=== PATIENT | male | born 1940 | race Caucasian/White ===

== ENCOUNTER 2017-09-24 08:00 | Inpatient (IN) | payer MEDICARE, BC ==
[2017-09-25] MEDS ORDERED: Vecuronium 10 MG VIAL ONE ×2 (05:58→15:46)
[2017-09-25] MEDS ORDERED: Midazolam HCl 5 mg/5 ml Vial ONE (05:58)
[2017-09-25] MEDS ORDERED: Fentanyl 100 MCG/2 ML VIAL ONE (05:58)
[2017-09-25] MEDS ORDERED: Dexmedetomidine 200 MCG/2 ML VIAL ONE (05:58)
[2017-09-25] MEDS ORDERED: Heparin 10,000 UNITS/1 ML VIAL 30,000 UNITS, Admixture Fee 1 EACH in Sodium Chloride 0.... IVPB SCH (06:30)
[2017-09-25] MEDS ORDERED: CEFAZOLIN/Water 2 GM/20 ML SYRINGE ONE (06:46)
[2017-09-25] MEDS ORDERED: Post-Op Insulin Drip Protocol IVPB ONE (10:53)
[2017-09-25] MEDS ORDERED: Bisacodyl 5 MG TAB PO PRN (10:53)
[2017-09-25] MEDS ORDERED: Bisacodyl 10 MG SUPP PR PRN (10:53)
[2017-09-25] MEDS ORDERED: Ondansetron HCl/PF 4 MG/2 ML Vial IVP PRN (10:53)
[2017-09-25] MEDS ORDERED: Magnesium 2 GM/NS 0.9% 100 ML 2 GM in Premix Bag 1 BAG IVPB SCH (10:53)
[2017-09-25] MEDS ORDERED: Guaifenesin DM 100-10/5 ML UDCUP PO PRN (10:53)
[2017-09-25] MEDS ORDERED: hydrALAZINE 20 MG/ML VIAL SLOW IVP PRN (10:53)
[2017-09-25] MEDS ORDERED: Norepinephrine 8 MG/0.9% NS 250 ML IVPB PRN (10:53)
[2017-09-25] MEDS ORDERED: HYDROcodone/Acetaminophen 5/325 mg Tablet PO PRN (10:53)
[2017-09-25] MEDS ORDERED: Promethazine HCl 25 MG/ML VIAL IM PRN (10:53)
[2017-09-25] MEDS ORDERED: Potassium Chloride 20 MEQ/100 ML PREMIX BAG IVPB PRN (10:53)
[2017-09-25] MEDS ORDERED: Hetastarch 6% 500 ML 500 ML IVPB PRN (10:53)
[2017-09-25] MEDS ORDERED: Acetaminophen 325 MG TAB PO PRN (10:53)
[2017-09-25] MEDS ORDERED: Mag-Al 1200 mg/1200 mg/30 ML UDCUP PO PRN (10:53)
[2017-09-25] MEDS ORDERED: Fentanyl 100 MCG/2 ML VIAL SLOW IVP PRN (10:53)
[2017-09-25] MEDS ORDERED: Insulin Regular 300 UNITS/3 ML VIAL SC PRN (11:05)
[2017-09-25] MEDS ORDERED: Dextrose 5% in Water 1,000 ML IV PRN (11:05)
[2017-09-25] MEDS ORDERED: Dextrose 50% Abboject 50 ML SYRINGE SLOW IVP PRN (11:05)
--- NOTE | 2017-09-25 11:05 | OP ---
DATE OF PROCEDURE: 09/25/2017 PREOPERATIVE DIAGNOSES: Coronary artery disease, left ventricular dysfunction. POSTOPERATIVE DIAGNOSIS: Coronary artery disease, left ventricular dysfunction. PROCEDURE: Coronary bypass graft x4, left internal mammary artery good quality to a 1.25 mm diseased LAD, saphenous vein good quality to a 1.25 diagonal I and 1.5 diagonal II and 1.25 OM2. SURGEON: Xu Vides M.D. GUEST ROOM INSPECTOR: Dr. Luis Salas TRANSFUSION: One platelet pack. FINDINGS: The patient had a sternum that had significant bleeding from the marrow. Otherwise, trans esophageal echo confirmed apical akinesis. PROCEDURE IN DETAIL: After adequate anesthesia had been obtained, Dr. Salas did an endovascular vein harvest of the left greater saphenous vein while I performed a median sternotomy. After opening the sternum, the left internal mammary artery was harvested entering the left pleura in one small area. The mammary was not passed posterior to the thymus gland because there was a little thymus gland to pass it underneath. Aorta and right atrium were cannulated and cardiopulmonary bypass was instituted . Vessels were inspected for grafting and were somewhat small as anticipated. After aortic crosscla mping and 10,000 mL of [place] cardioplegic solution were given the patient's distal anastomoses wer e performed. The crossclamp was then removed and a partial occluding clamp placed, and 2 proximal an astomoses were performed on the aortic root and the third vein graft was anastomosed to the site of o ne of the other vein grafts. Following completion of this, the patient was somewhat slow to begin to beat, but then resumed a sinus rhythm. He was weaned from cardiopulmonary bypass, cannulas were rem jeanette, protamine was given systemically and the patient was somewhat sensitive with his blood pressure of protamine. Two temporary ventricular wires were placed, but not utilized. Mediastinal and left pleural drain were placed and the sternum was then reapproximated with #7 interrupted wire using vanc omycin paste, platelet-enriched blood, and platelet-poor plasma on the bone and subcutaneous tissue. Subcutaneous tissue and skin were closed in layers and the patient is to be taken to the ICU in guar ded condition.
[2017-09-25] MEDS: Sodium Chloride 0.9% 1,000 ML IV SCH ×2 (11:27→23:08)
[2017-09-25] MEDS: Ketorolac Tromethamine 30 MG/ML VIAL IVP SCH ×3 (11:28→23:04)
[2017-09-25 11:40] LABS: #Eosinphils 0.1 thou/uL (0.0-0.7); #Lymphocytes 1.4 thou/uL (1.20-3.40); #Monocytes 0.4 thou/uL (0.11-0.59); #Neutrophils 11.1 thou/uL (1.40-6.50); %Basophils 0.2 % (0.0-1.0); %Lymphocytes 10.4 % (21.0-51.0); %Monocytes 2.9 % (0.0-10.0); Mean Platelet Volume 6.7 fL (7.4-10.4); Red Blood Cell (RBC) Count 3.98 mill/uL (4.70-6.10)
[2017-09-25 11:44] LABS: Prothrombin Time 18.5 SEC (12.0-14.7)
[2017-09-25 11:45] LABS: PTT 35.6 SEC (22.9-36.1)
[2017-09-25 11:46] LABS: Oxyhemoglobin 96.5 % (94.0-97.0); Sodium 137 mmol/L (135-148)
[2017-09-25 11:48] LABS: Mechanical Tidal Volume 500 ml; Modified Allen's Test NOT DONE; Vent YES
[2017-09-25 11:49] LABS: Mode SIMV/PSV; Pressure Support 10 cmH2O
[2017-09-25 12:06] LABS: Anion Gap 11 mmol/L (10-20); BUN (Urea Nitrogen) 9 mg/dL (8.4-25.7); Calc. Creatinine Clearance 105 mL/min (70-130); Calcium 7.1 mg/dL (7.8-10.44); Carbon Dioxide 24 mmol/L (23-31); Chloride 107 mmol/L (98-107); Estimated GFR-MDRD Greater than 90
--- NOTE | 2017-09-25 12:06 | RAD ---
CHEST ONE VIEW: History: Post open heart surgery. Comparison: None. FINDINGS: Patient is intubated with endotracheal tube tip above the fausto 4 cm. Central venous catheter tip is in the right atrium. Mediastinum and thoracostomy drains are present. No large pneumothorax. Suspect ed atelectasis. IMPRESSION: Expected post-operative changes without complication. POS: [facility]
[2017-09-25 12:09] VITALS: BMI 28.0
[2017-09-25 12:37] LABS: Oxyhemoglobin 97.7 % (94.0-97.0); Sodium 140 mmol/L (135-148)
[2017-09-25 12:37] LABS: Base Excess 2.9 mEq/L (0 (+/- 2.5)); O2 Content (venous) 12.3 VOL% (12.5-17.5); pH (venous) 7.46 (7.35-7.45)
[2017-09-25 12:37] LABS: Oxyhemoglobin 97.7 % (94.0-97.0); Sodium 136 mmol/L (135-148)
[2017-09-25 12:37] LABS: Oxyhemoglobin 97.5 % (94.0-97.0); Sodium 138 mmol/L (135-148)
[2017-09-25] MEDS: DOPamine 400 MG/D5W 250 ML 250 ML IVPB PRN (13:41)
[2017-09-25 15:24] LABS: Oxyhemoglobin 93.7 % (94.0-97.0); Sodium 140 mmol/L (135-148)
[2017-09-25 15:40] LABS: Mode PSV; Modified Allen's Test NOT DONE; Pressure Support 10 cmH2O; Vent YES
[2017-09-25] MEDS ORDERED: ePHEDrine/0.9% NaCl/PF SYRINGE 50 mg/10 ml ONE (15:46)
[2017-09-25] MEDS ORDERED: Lidocaine 1% PF 5 ML VIAL ONE (15:46)
[2017-09-25] MEDS ORDERED: Nitroglycerin 50 MG/250 ML BOT ONE (15:46)
[2017-09-25] MEDS ORDERED: PHENYLEPHRINE-NS 100 MCG/ML 10 ML SYRINGE ONE (15:46)
[2017-09-25] MEDS ORDERED: Heparin 30,000 units/30 ml VIAL ONE (15:46)
[2017-09-25] MEDS ORDERED: Aminocaproic Acid 5 GM/20 ML VIAL ONE (15:46)
[2017-09-25] MEDS ORDERED: Protamine Sulfate 250 MG/25 ML VIAL ONE (15:46)
[2017-09-25] MEDS: CEFAZOLIN/Water 2 GM/20 ML SYRINGE SLOW IVP SCH ×2 (15:47→22:26)
[2017-09-25 16:39] LABS: Mode OR ABG; Vent YES
[2017-09-25 16:40] LABS: Mode OR ABG; Vent YES
[2017-09-25 16:41] LABS: Mode OR ABG; Vent YES
[2017-09-25 17:03] LABS: Hematocrit 34.5 % (42.0-52.0)
[2017-09-25] MEDS: Fentanyl 100 MCG/2 ML VIAL SLOW IVP PRN (20:13)
[2017-09-25] MEDS ORDERED: Famotidine/PF 20 mg/2ml Vial SLOW IVP SCH (21:00)
[2017-09-25] MEDS ORDERED: Atorvastatin Calcium 20 MG TAB PO SCH (21:00)
[2017-09-26] MEDS: Fentanyl 100 MCG/2 ML VIAL SLOW IVP PRN (02:02)
[2017-09-26 04:24] LABS: #Lymphocytes 0.9 thou/uL (1.20-3.40); #Monocytes 1.8 thou/uL (0.11-0.59); #Neutrophils 10.7 thou/uL (1.40-6.50); %Basophils 0.3 % (0.0-1.0); %Eosinophils 0.2 % (0.0-10.0); %Lymphocytes 6.7 % (21.0-51.0); %Monocytes 13.1 % (0.0-10.0); Hematocrit 30.8 % (42.0-52.0); Mean Platelet Volume 7.1 fL (7.4-10.4); Red Blood Cell (RBC) Count 3.21 mill/uL (4.70-6.10); White Blood Cell (WBC) Count 13.5 thou/uL (4.8-10.8)
[2017-09-26 04:41] LABS: Anion Gap 7 mmol/L (10-20); BUN (Urea Nitrogen) 13 mg/dL (8.4-25.7); Calc. Creatinine Clearance 96 mL/min (70-130); Calcium 7.7 mg/dL (7.8-10.44); Carbon Dioxide 28 mmol/L (23-31); Chloride 110 mmol/L (98-107); Estimated GFR-MDRD Greater than 90
[2017-09-26] MEDS: Ketorolac Tromethamine 30 MG/ML VIAL IVP SCH ×4 (05:18→23:14)
[2017-09-26] MEDS: CEFAZOLIN/Water 2 GM/20 ML SYRINGE SLOW IVP SCH (06:09)
[2017-09-26] MEDS: DOPamine 400 MG/D5W 250 ML 250 ML IVPB PRN (06:56)
[2017-09-26] MEDS: HYDROcodone/Acetaminophen 5/325 mg Tablet PO PRN ×3 (08:06→23:10)
[2017-09-26] MEDS: Famotidine 20 MG TAB PO SCH ×2 (08:06→19:58)
--- NOTE | 2017-09-26 08:35 | RAD ---
PORTABLE CHEST: HISTORY: Postop sternotomy. COMPARISON: 09/25/17. FINDINGS: Cardiomegaly. Postop sternotomy change. Evidence of small bilateral effusions and bibasilar atelect asis. Upper lung dunn remain well aerated and clear. The central line is unchanged. ET tube has been removed. IMPRESSION: Evidence of bibasilar atelectasis and small effusions. POS: [facility]
[2017-09-26] MEDS: Sodium Chloride 0.9% 1,000 ML IV SCH (11:04)
--- NOTE | 2017-09-26 17:52 | CON ---
DATE OF CONSULTATION: 09/26/2017 HISTORY OF PRESENT ILLNESS: Mr. Wiggins is a pleasant 77-year-old gentleman, simon for most of his l pavan from [place]. He is now lives in [place] because of his who was admitted to the hospital following a cardiac catheterization and underwent coronary bypass graft surgery x4, last night he kruse d bradycardic. His x-ray shows cardiomegaly and bilateral pleural effusion. He has never smoked. D enies any prior history of TB, pneumonia or bronchial asthma. He is very active. PAST MEDICAL HISTORY: Pertinent for high cholesterol, hypertension, CHF. PAST SURGICAL HISTORY: He said he has had multiple somewhat related right hip prostheses. Additiona lly, he has had an echocardiogram, cardiac catheterization, foot surgery done, shoulder surgery. MEDICATIONS: From home includes Lasix 20, lisinopril 2.5, Coreg 3.125, Lipitor 40, aspirin. ALLERGIES: None. REVIEW OF SYSTEMS: Unremarkable. PHYSICAL EXAMINATION: VITAL SIGNS: Pulse 70, blood pressure is 118/80, respirations 18, sat 90%. CHEST: Decreased breath sounds, bilateral crackles. CARDIAC: Normal S1-S2. No gallops. LABORATORY: White count 13, hemoglobin and hematocrit 10 and 30 and platelet count normal. Renal fu nction normal. X-ray shows cardiomegaly, bilateral pleural effusion. IMPRESSION: 1. Status post coronary artery bypass graft. 2. Congestive heart failure. 3. Cardiomyopathy. PLAN: Agree with present treatment. The patient in no distress. Continue diuretics preload and aft erload reduction medication. We will follow while in the ICU.
[2017-09-26] MEDS: Atorvastatin Calcium 40 MG TAB PO SCH (19:58)
[2017-09-27 04:14] LABS: Anion Gap 8 mmol/L (10-20); BUN (Urea Nitrogen) 16 mg/dL (8.4-25.7); Calc. Creatinine Clearance 110 mL/min (70-130); Calcium 7.9 mg/dL (7.8-10.44); Carbon Dioxide 27 mmol/L (23-31); Chloride 109 mmol/L (98-107); Estimated GFR-MDRD Greater than 90
[2017-09-27] MEDS: Ketorolac Tromethamine 30 MG/ML VIAL IVP SCH ×3 (05:34→17:59)
[2017-09-27 06:05] LABS: Band 2 % (5-11); Macrocytosis SLIGHT = 6-15 cells (100X) (0-5/hpf); Mean Platelet Volume 7.6 fL (7.4-10.4); Neutrophil 69 % (42-75); Reactive Lymphocytes 1 % (0-10); White Blood Cell (WBC) Count 11.1 thou/uL (4.8-10.8)
--- NOTE | 2017-09-27 09:18 | RAD ---
PORTABLE CHEST: HISTORY: Postop sternotomy followup. COMPARISON: 09/26/17. FINDINGS: Cardiomegaly. Postop sternotomy change. Bibasilar atelectasis and evidence of small bilateral effus ions. Upper lung dunn remain clear. IMPRESSION: No significant change from yesterday. POS: [facility]
[2017-09-27] MEDS ORDERED: Ondansetron HCl/PF 4 MG/2 ML Vial IVP PRN (09:20)
[2017-09-27] MEDS ORDERED: Nitroglycerin 0.4 MG TAB 1 EACH SL PRN (09:20)
[2017-09-27] MEDS ORDERED: Mag-Al 1200 mg/1200 mg/30 ML UDCUP PO PRN (09:20)
[2017-09-27] MEDS ORDERED: Bisacodyl 10 MG SUPP PR PRN (09:20)
[2017-09-27] MEDS ORDERED: Artificial Tears 18 DROP/0.9 ML EA EYE PRN (09:20)
[2017-09-27] MEDS ORDERED: diphenhydrAMINE 25 MG CAP PO PRN (09:20)
[2017-09-27] MEDS ORDERED: Bisacodyl 5 MG TAB PO PRN (09:20)
[2017-09-27] MEDS ORDERED: Mineral Oil ENEMA PR PRN (09:20)
[2017-09-27] MEDS ORDERED: Guaifenesin DM 100-10/5 ML UDCUP PO PRN (09:20)
[2017-09-27] MEDS ORDERED: Zolpidem Tartrate 5 MG TAB PO PRN (09:20)
[2017-09-27] MEDS ORDERED: Furosemide 40 MG TAB PO SCH ×2 (09:20→10:00)
[2017-09-27] MEDS ORDERED: Milk Of Magnesia 30 ML UDCUP PO PRN (09:20)
[2017-09-27] MEDS: Famotidine 20 MG TAB PO SCH ×2 (09:52→21:35)
--- NOTE | 2017-09-27 16:34 | PRG ---
DATE OF SERVICE: 09/27/2017 SUBJECTIVE: This morning, awake, alert, responsive, in no distress. OBJECTIVE: VITAL SIGNS: Blood pressure 112/57, pulse 70, O2 sat 100%, respirations 18. His I's and O's have be en good, 1971 in and 875 out. CHEST: Chest reveals decreased breath sounds, no wheezing. CARDIAC: Normal S1, S2. No gallops. ABDOMEN: Soft, no masses. LABORATORY DATA: White count 11,000, H&H is 9 and 28, platelet count 166 . Electrolytes are normal. X-RAY FINDINGS: X-ray shows cardiomegaly, left pleural effusion. IMPRESSION: 1. Status post coronary artery bypass graft. 2. Marked weakness. PLAN: Continue PT and supportive care. We will follow while in [facility].
[2017-09-27] MEDS: Atorvastatin Calcium 40 MG TAB PO SCH (21:35)
[2017-09-27] MEDS: HYDROcodone/Acetaminophen 5/325 mg Tablet PO PRN (21:46)
[2017-09-27] MEDS ORDERED: Sodium Chloride 0.9% 10 ML ONE (23:58)
[2017-09-28] MEDS: Ketorolac Tromethamine 30 MG/ML VIAL IVP SCH (00:01)
[2017-09-28] MEDS: Famotidine 20 MG TAB PO SCH ×2 (08:22→21:11)
[2017-09-28] MEDS: Furosemide 40 MG TAB PO SCH (08:22)
[2017-09-28] MEDS ORDERED: Lisinopril 2.5 MG TAB PO SCH (09:00)
--- NOTE | 2017-09-28 09:12 | PRG ---
DATE OF SERVICE: 09/28/2017 He is doing well post coronary artery bypass graft. No longer hypertensive. PHYSICAL EXAMINATION: VITAL SIGNS: Blood pressure 141/60, sats 95%, temperature 98, pulse 70, respirations 20. CHEST: No wheezing. CARDIAC: Normal S1, S2. ABDOMEN: Soft, no masses. IMPRESSION: 1. Status post coronary artery bypass graft. 2. Congestive heart failure. 3. Hypertension, resolved. Continue care as per Surgery. I will follow at a distance. Please call if needed.
[2017-09-28] MEDS: Enoxaparin Sodium 40 MG/0.4 ML SYRINGE SC SCH (09:14)
[2017-09-28] MEDS: Acetaminophen 325 MG TAB PO PRN ×2 (15:29→21:11)
[2017-09-28] MEDS: Atorvastatin Calcium 40 MG TAB PO SCH (21:11)
[2017-09-29] MEDS: Acetaminophen 325 MG TAB PO PRN ×2 (06:01→21:30)
[2017-09-29] MEDS: Enoxaparin Sodium 40 MG/0.4 ML SYRINGE SC SCH (09:11)
[2017-09-29] MEDS: Lisinopril 5 MG TAB PO SCH (09:11)
[2017-09-29] MEDS: Furosemide 40 MG TAB PO SCH (09:12)
[2017-09-29] MEDS: Famotidine 20 MG TAB PO SCH ×2 (09:12→21:30)
[2017-09-29] MEDS: Atorvastatin Calcium 40 MG TAB PO SCH (21:30)
[2017-09-30] MEDS: Furosemide 40 MG TAB PO SCH (11:21)
[2017-09-30] MEDS: Lisinopril 5 MG TAB PO SCH (11:21)
[2017-09-30] MEDS: Famotidine 20 MG TAB PO SCH (11:21)
[2017-09-30] MEDS: Enoxaparin Sodium 40 MG/0.4 ML SYRINGE SC SCH (11:21)
[2017-09-30 11:57] VITALS: TEMP 98.4
[2017-09-30 14:17] VITALS: BP 124/66
[2017-09-30] MEDS ORDERED: Carvedilol 3.125 MG TAB PO SCH (17:00)
--- NOTE | 2017-09-30 20:57 | DIS ---
HOSPITAL COURSE: This is a pleasant gentleman who was evaluated by Dr. Kinney as an outpatient wit h mildly depressed left ventricular systolic function with an ejection fraction of 40% to 45% and sev ere disease in his LAD, diagonal, and circumflex system, although all of these vessels were small on his cardiac catheterization. He had some symptoms of congestive heart failure prompting the evaluati on. He was taken to the operating room on the day of admission where he underwent a coronary bypass grafting with saphenous vein good quality to a small diagonal 1, more usable diagonal 2 and a small O M2 as well as a good GREGORY to a small LAD. He received 1 platelet pack intraoperatively. His postope rative course was unremarkable. He made good progress and will be discharged home on his admitting edicines with no prescriptions. Discharge and follow up instructions were given.
--- NOTE | 2017-10-10 13:30 | EKG ---
Test Reason : POST CABG Blood Pressure : / mmHG Vent. Rate : 077 BPM Atrial Rate : 077 BPM P-R Int : 236 ms QRS Dur : 122 ms QT Int : 468 ms P-R-T Axes : 043 -33 106 degrees QTc Int : 529 ms Sinus rhythm with 1st degree A-V block Left axis deviation Cannot rule out Anterior infarct (cited on or before 24-SEP-2017) T wave abnormality, consider lateral ischemia Abnormal ECG Confirmed by RENE ANTOINE MD ([id number]) on 10/10/2017 1:29:59 PM Referred By: ASTRID Confirmed By:RENE ANTOINE MD
== END 2017-09-30 12:40 | disposition home or self-care (01) | DRG 236 ==
LOC: SURG A 09-25 05:38 → CCU 09-25 10:54 → 2NO 09-27 15:23
PROVIDERS: ADMIT Thoracic Surgery (Cardiothoracic Vascular Surgery); ATTEND Thoracic Surgery (Cardiothoracic Vascular Surgery)
PROC: 02100Z9 Bypass Coronary Artery, One Artery from Left Internal Mammary, Open Approach (ICD-10-PCS; principal; 2017-09-25)
PROC: 021209W Bypass Coronary Artery, Three Arteries from Aorta with Autologous Venous Tissue, Open Approach (ICD-10-PCS; 2017-09-25)
PROC: 06BQ4ZZ Excision of Left Saphenous Vein, Percutaneous Endoscopic Approach (ICD-10-PCS; 2017-09-25)
PROC: 5A1221Z Performance of Cardiac Output, Continuous (ICD-10-PCS; 2017-09-25)
PROC: B24BZZ4 Ultrasonography of Heart with Aorta, Transesophageal (ICD-10-PCS; 2017-09-25)
DX: I25.10 Atherosclerotic heart disease of native coronary artery without angina pectoris (principal); I42.9 Cardiomyopathy, unspecified; I11.0 Hypertensive heart disease with heart failure; I50.9 Heart failure, unspecified; E78.5 Hyperlipidemia, unspecified; M19.90 Unspecified osteoarthritis, unspecified site
CPT/HCPCS: 36415; 36416; 36430; 71010; 80048; 82805; 85025; 85610; 85730; 86850; 86900; 86901; 93005; 93010; 93798; 94002; 94150; 94640; 94799; A4216; J1265; J1642; J1644; J1650; J1815; J1885; J2001; J2250; J2405; J2597; J2720; J3010; J3475; J3480; J7050; P9035; P9045; S0017; S0028

== ENCOUNTER 2017-09-24 08:01 | Outpatient (CLI) | payer MEDICARE, BC ==
--- NOTE | 2017-10-10 13:25 | EKG ---
Test Reason : Blood Pressure : / mmHG Vent. Rate : 050 BPM Atrial Rate : 050 BPM P-R Int : 244 ms QRS Dur : 090 ms QT Int : 458 ms P-R-T Axes : 000 014 099 degrees QTc Int : 417 ms Poor data quality, interpretation may be adversely affected Sinus bradycardia with 1st degree A-V block Anterolateral infarct , age undetermined Abnormal ECG No previous ECGs available Confirmed by ELINA MART, RENE ([id number]) on 10/10/2017 1:25:44 PM Referred By: KAITLYNN Confirmed By:RENE ANTOINE MD
== END 2017-09-24 08:02 | disposition home or self-care (01) ==
LOC: LABBT 08:01
PROVIDERS: ATTEND Thoracic Surgery (Cardiothoracic Vascular Surgery)
DX: Z01.812 Encounter for preprocedural laboratory examination (principal); I25.10 Atherosclerotic heart disease of native coronary artery without angina pectoris
CPT/HCPCS: 36415; 36430; 86850; 86900; 86901; 93005; 93010

== ENCOUNTER 2023-02-09 13:12 | Outpatient (CLI) | payer MEDICARE, BC | END 2023-02-09 13:13 | disposition home or self-care (01) | LOC: TBSIIMAG 13:12 | PROVIDERS: ATTEND Internal Medicine | DX: C20 Malignant neoplasm of rectum (principal) | CPT/HCPCS: 72197; 80053; 85025 ==

== ENCOUNTER 2023-02-10 13:57 | Outpatient (CLI) | payer MEDICARE, BC ==
[~2023-02-10 13:57] MED LIST: Iopamidol 370 76% 100 ML VIAL ONE
== END 2023-02-10 13:58 | disposition home or self-care (01) ==
LOC: CT 13:57
PROVIDERS: ATTEND Radiology Radiation Oncology
DX: C20 Malignant neoplasm of rectum (principal); D37.5 Neoplasm of uncertain behavior of rectum
CPT/HCPCS: 71260; 74177; Q9967

== ENCOUNTER 2023-02-13 10:15 | Day surgery (SDC) | payer MEDICARE, BC ==
[2023-02-09 17:05] VITALS: BMI 25.2
[2023-02-13] MEDS ORDERED: Bupivacaine/Epinephrine 0.25% 30 ML VIAL ONE (13:48)
[2023-02-13] MEDS ORDERED: Lidocaine 2% PF 5 ML VIAL ONE (13:48)
[2023-02-13] MEDS ORDERED: fentaNYL PF 100 MCG/2 ML SYRINGE ONE (13:57)
[2023-02-13] MEDS ORDERED: Sodium Chloride 0.9% 100 ML ONE (14:01)
[2023-02-13] MEDS ORDERED: CEFAZOLIN 2 GM VIAL ONE (14:01)
[2023-02-13] MEDS ORDERED: Lidocaine 1% PF 5 ML VIAL ONE (14:15)
[2023-02-13] MEDS ORDERED: ePHEDrine Sulfate 50 MG/10 ML VIAL ONE (14:15)
[2023-02-13] MEDS ORDERED: Ondansetron PF 4 MG/2 ML Vial ONE (14:15)
[2023-02-13] MEDS ORDERED: PROPOFOL 200 MG/20 ML VIAL ONE (14:15)
== END 2023-02-13 16:17 | disposition home or self-care (01) ==
LOC: SDC 10:15
PROVIDERS: ATTEND Surgery
PROC: 0JH60WZ Insertion of Totally Implantable Vascular Access Device into Chest Subcutaneous Tissue and Fascia, Open Approach (ICD-10-PCS; principal; 2023-02-13)
PROC: 02HV33Z Insertion of Infusion Device into Superior Vena Cava, Percutaneous Approach (ICD-10-PCS; 2023-02-13)
PROC: B518ZZA Fluoroscopy of Superior Vena Cava, Guidance (ICD-10-PCS; 2023-02-13)
DX: C20 Malignant neoplasm of rectum (principal); I51.9 Heart disease, unspecified; E78.00 Pure hypercholesterolemia, unspecified; Z79.82 Long term (current) use of aspirin; Z79.899 Other long term (current) drug therapy; Z95.1 Presence of aortocoronary bypass graft
CPT/HCPCS: 36561; 71045; C1788; J1642; J2001; J2405; J2704; J3490

== ENCOUNTER 2023-05-27 16:39 | Inpatient (IN) | payer MEDICARE, BC ==
[~2023-05-27 16:39] MED LIST changes: -Iopamidol 370 76% 100 ML VIAL ONE; +Iopamidol-370 76% 500 ML MDV (1 ML CHARGE) ONE
[2023-05-27 17:28] LABS: #Basophils 0.1 thou/uL (0.0-0.2); #Eosinphils 0.1 thou/uL (0.0-0.7); #Neutrophils 11.4 thou/uL (1.40-6.50); %Basophils 0.5 % (0.0-1.0); %Eosinophils 0.8 % (0.0-10.0); %Lymphocytes 12.1 % (21.0-51.0); %Monocytes 17.9 % (0.0-10.0); %Neutrophils 67.9 % (42.0-75.0); Hematocrit 25.8 % (42.0-52.0); Hemoglobin 8.1 g/dL (14.0-18.0); Mean Corpuscular HGB CONC 31.4 g/dL (32.0-36.0); Mean Corpuscular Hemoglobin 33.3 pg (27.0-31.0); Mean Corpuscular Volume 106.2 fl (78.0-98.0); Mean Platelet Volume 10.1 fL (7.4-10.4); Platelet Count 285 10x3/uL (130-400); RBC Distribution Width 24.6 % (11.5-14.5); Red Blood Cell (RBC) Count 2.43 mill/uL (4.70-6.10); White Blood Cell (WBC) Count 16.8 10x3/uL (4.8-10.8)
[2023-05-27 17:50] LABS: ALT (SGPT) 11 U/L (8-55); AST (SGOT) 20 U/L (5-34); Albumin 2.3 g/dL (3.4-4.8); Alkaline Phosphatase 94 U/L (40-110); Anion Gap 9 mmol/L (10-20); BUN (Urea Nitrogen) 14 mg/dL (8.4-25.7); Bilirubin, Total 0.7 mg/dL (0.2-1.2); Calc. Creatinine Clearance 0 mL/min (70-130); Calcium 7.2 mg/dL (7.8-10.44); Carbon Dioxide 25 mmol/L (23-31); Chloride 111 mmol/L (98-107); Estimated GFR 89; Globulin 2.1 g/dL (2.4-3.5); Glucose 100 mg/dL (83-110); Potassium 3.7 mmol/L (3.5-5.1); Protein, Total 4.4 g/dL (5.8-8.1); Sodium 141 mmol/L (136-145)
[2023-05-27 17:51] LABS: Anisocytosis SLIGHT = 6-15 cells HPF (0-5); Burr Cells SLIGHT = 2-5 cells HPF (0-1); CellaVision Operator ID lab.dlt; Macrocytosis SLIGHT = 6-15 cells HPF (0-5); Ovalocytes SLIGHT = 2-5 cells HPF (0-1); Platelet Adequacy Comment Platelets Normal; Poikilocytosis MODERATE=16-30 cells HPF (0-5); Polychromasia SLIGHT = 2-3 cells HPF (0-2)
[2023-05-27 20:31] LABS: Bacteria/HPF None Seen HPF (None Seen); Bilirubin Negative (Negative); Blood, Urine Negative (Negative); CAUTI Indications for Culture Pelvic or flank pain; Clarity Clear (Clear); Glucose, Urine (Dipstick) Normal (Negative); Ketone, Urine Negative (Negative); Leukocyte Negative Leu/uL (Negative); Nitrite Negative (Negative); Protein, Urine (Dipstick) 20 mg/dL (Neg-Trace); RBC/HPF 0-3 HPF (0-3); Specific Gravity, Urine 1.023 (1.002-1.036); Squamous Epithelial None Seen HPF (0-3); Urobilinogen 3 mg/dL (Less than 2); WBC/HPF 0-3 HPF (0-3)
[2023-05-27 20:38] LABS: Urine Culture Reflex No No
[2023-05-27 21:06] LABS: Lactic Acid 2.8 mmol/L (0.5-2.2)
[2023-05-27 21:59] LABS: Troponin I 0.014 ng/mL (< 0.028)
[2023-05-27] MEDS ORDERED: Acetaminophen 325 MG TAB PO PRN (23:21)
[2023-05-27] MEDS ORDERED: Ondansetron PF 4 MG/2 ML Vial IVP PRN (23:21)
[2023-05-27] MEDS ORDERED: Ondansetron ODT 4 MG TAB PO PRN (23:21)
[2023-05-27] MEDS ORDERED: Furosemide 20 MG/2 ML VIAL SLOW IVP SCH (23:30)
[2023-05-28 00:21] VITALS: BMI 24.8
[2023-05-28 02:07] LABS: #Basophils 0.1 thou/uL (0.0-0.2); #Eosinphils 0.1 thou/uL (0.0-0.7); #Monocytes 2.5 thou/uL (0.11-0.59); #Neutrophils 8.2 thou/uL (1.40-6.50); %Basophils 0.4 % (0.0-1.0); %Eosinophils 0.9 % (0.0-10.0); %Lymphocytes 13.5 % (21.0-51.0); %Monocytes 19.6 % (0.0-10.0); Hematocrit 26.6 % (42.0-52.0); Hemoglobin 8.4 g/dL (14.0-18.0); Mean Corpuscular HGB CONC 31.6 g/dL (32.0-36.0); Mean Corpuscular Hemoglobin 33.2 pg (27.0-31.0); Mean Corpuscular Volume 105.1 fl (78.0-98.0); Mean Platelet Volume 10.2 fL (7.4-10.4); Platelet Count 291 10x3/uL (130-400); RBC Distribution Width 24.2 % (11.5-14.5); Red Blood Cell (RBC) Count 2.53 mill/uL (4.70-6.10); White Blood Cell (WBC) Count 12.7 10x3/uL (4.8-10.8)
[2023-05-28 02:19] LABS: INR-International Normal Ratio 1.3; Prothrombin Time 16.7 sec (12.0-14.7)
[2023-05-28 02:20] LABS: PTT 31.1 sec (22.9-36.1)
[2023-05-28 03:19] LABS: Anion Gap 10 mmol/L (10-20); BUN (Urea Nitrogen) 14 mg/dL (8.4-25.7); Calc. Creatinine Clearance 82 mL/min (70-130); Carbon Dioxide 22 mmol/L (23-31); Chloride 109 mmol/L (98-107); Estimated GFR 90; Glucose 107 mg/dL (83-110); Potassium 3.4 mmol/L (3.5-5.1); Sodium 138 mmol/L (136-145)
[2023-05-28] MEDS ORDERED: Electrolyte Replacement Protocol 1 EACH FS SCH (03:30)
[2023-05-28] MEDS ORDERED: Potassium Chloride 20 MEQ TAB PO SCH (03:30)
[2023-05-28 04:26] LABS: Magnesium 0.9 mg/dL (1.6-2.6)
[2023-05-28] MEDS ORDERED: Magnesium Sulfate In Water 4 GM in Premix Bag 1 BAG IVPB SCH (08:00)
[2023-05-28] MEDS: Aspirin 81 mg Enteric Coated Tablet PO SCH (08:44)
[2023-05-28] MEDS: Atorvastatin Calcium 40 MG TAB PO SCH (08:44)
[2023-05-28] MEDS: Sodium Chloride 0.9% 1,000 ML IV SCH (13:29)
[2023-05-28] MEDS: Furosemide 20 MG/2 ML VIAL SLOW IVP SCH (13:33)
[2023-05-28] MEDS: Albumin 25% 25 GM/100 ML BOT IVPB SCH (17:04)
[2023-05-28] MEDS: Heparin 5,000 UNITS/ML VIAL SC SCH (22:00)
[2023-05-29] MEDS: Albumin 25% 25 GM/100 ML BOT IVPB SCH ×3 (00:25→13:23)
[2023-05-29] MEDS: Sodium Chloride 0.9% 1,000 ML IV SCH ×2 (01:39→15:46)
[2023-05-29] MEDS: Furosemide 20 MG/2 ML VIAL SLOW IVP SCH ×2 (05:08→15:46)
[2023-05-29 05:28] LABS: #Basophils 0.1 thou/uL (0.0-0.2); #Eosinphils 0.1 thou/uL (0.0-0.7); #Monocytes 2.2 thou/uL (0.11-0.59); #Neutrophils 7.2 thou/uL (1.40-6.50); %Basophils 0.6 % (0.0-1.0); %Eosinophils 1.1 % (0.0-10.0); %Neutrophils 63.7 % (42.0-75.0); Hematocrit 25.3 % (42.0-52.0); Mean Corpuscular HGB CONC 31.6 g/dL (32.0-36.0); Mean Corpuscular Hemoglobin 32.9 pg (27.0-31.0); Mean Corpuscular Volume 104.1 fl (78.0-98.0); Mean Platelet Volume 10.1 fL (7.4-10.4); Platelet Count 241 10x3/uL (130-400); RBC Distribution Width 23.7 % (11.5-14.5); Red Blood Cell (RBC) Count 2.43 mill/uL (4.70-6.10); White Blood Cell (WBC) Count 11.3 10x3/uL (4.8-10.8)
[2023-05-29 05:50] LABS: Anion Gap 10 mmol/L (10-20); BUN (Urea Nitrogen) 12 mg/dL (8.4-25.7); Calc. Creatinine Clearance 90 mL/min (70-130); Calcium 7.2 mg/dL (7.8-10.44); Carbon Dioxide 25 mmol/L (23-31); Chloride 109 mmol/L (98-107); Estimated GFR 92; Glucose 84 mg/dL (83-110); Magnesium 1.6 mg/dL (1.6-2.6); Potassium 3.6 mmol/L (3.5-5.1); Sodium 140 mmol/L (136-145)
[2023-05-29] MEDS ORDERED: Magnesium 2 GM/50 ML(in water) 2 GM in Premix Bag 1 BAG IVPB SCH (08:00)
[2023-05-29] MEDS: Heparin 5,000 UNITS/ML VIAL SC SCH ×2 (08:56→21:14)
[2023-05-29] MEDS: Atorvastatin Calcium 40 MG TAB PO SCH (08:56)
[2023-05-29] MEDS: Aspirin 81 mg Enteric Coated Tablet PO SCH (08:56)
[2023-05-29] MEDS: Magnesium Oxide 400 MG TAB PO SCH (08:56)
[2023-05-30 04:02] LABS: #Basophils 0.1 thou/uL (0.0-0.2); #Eosinphils 0.3 thou/uL (0.0-0.7); #Monocytes 2.2 thou/uL (0.11-0.59); %Basophils 0.5 % (0.0-1.0); %Eosinophils 2.2 % (0.0-10.0); %Lymphocytes 15.6 % (21.0-51.0); %Monocytes 19.5 % (0.0-10.0); %Neutrophils 61.6 % (42.0-75.0); Hematocrit 25.7 % (42.0-52.0); Hemoglobin 8.3 g/dL (14.0-18.0); Mean Corpuscular HGB CONC 32.3 g/dL (32.0-36.0); Mean Corpuscular Hemoglobin 33.6 pg (27.0-31.0); Mean Platelet Volume 9.8 fL (7.4-10.4); Platelet Count 239 10x3/uL (130-400); RBC Distribution Width 23.1 % (11.5-14.5); Red Blood Cell (RBC) Count 2.47 mill/uL (4.70-6.10); White Blood Cell (WBC) Count 11.4 10x3/uL (4.8-10.8)
[2023-05-30 04:25] LABS: Phosphorus 2.1 mg/dL (2.3-4.7)
[2023-05-30 04:28] LABS: Anion Gap 11 mmol/L (10-20); BUN (Urea Nitrogen) 11 mg/dL (8.4-25.7); Calc. Creatinine Clearance 84 mL/min (70-130); Carbon Dioxide 24 mmol/L (23-31); Chloride 109 mmol/L (98-107); Estimated GFR 90; Glucose 112 mg/dL (83-110); Magnesium 1.7 mg/dL (1.6-2.6); Potassium 3.8 mmol/L (3.5-5.1); Sodium 140 mmol/L (136-145)
[2023-05-30] MEDS ORDERED: Magnesium 2 GM/50 ML(in water) 2 GM in Premix Bag 1 BAG IVPB SCH (08:00)
[2023-05-30] MEDS: Aspirin 81 mg Enteric Coated Tablet PO SCH (10:51)
[2023-05-30] MEDS: Magnesium Oxide 400 MG TAB PO SCH (10:51)
[2023-05-30] MEDS: Atorvastatin Calcium 40 MG TAB PO SCH (10:51)
[2023-05-30] MEDS: Heparin 5,000 UNITS/ML VIAL SC SCH (10:52)
[2023-05-30 11:42] VITALS: BP 129/60; TEMP 97.8
== END 2023-05-30 13:30 | disposition home or self-care (01) | DRG 844 ==
LOC: ERS 16:39 → 2NO 22:18
PROVIDERS: ADMIT Student in an Organized Health Care Education/Training Program; ATTEND Internal Medicine
PROC: 30233J1 Transfusion of Nonautologous Serum Albumin into Peripheral Vein, Percutaneous Approach (ICD-10-PCS; principal; 2023-05-28)
DX: E88.09 Other disorders of plasma-protein metabolism, not elsewhere classified (principal); C18.9 Malignant neoplasm of colon, unspecified; C20 Malignant neoplasm of rectum; J90 Pleural effusion, not elsewhere classified; J98.11 Atelectasis; R60.1 Generalized edema; I95.9 Hypotension, unspecified; I25.10 Atherosclerotic heart disease of native coronary artery without angina pectoris; I10 Essential (primary) hypertension; E78.5 Hyperlipidemia, unspecified; R63.5 Abnormal weight gain; D72.829 Elevated white blood cell count, unspecified; D64.9 Anemia, unspecified; E83.42 Hypomagnesemia; R54 Age-related physical debility; G47.33 Obstructive sleep apnea (adult) (pediatric); Z79.82 Long term (current) use of aspirin; Z92.21 Personal history of antineoplastic chemotherapy; Z95.5 Presence of coronary angioplasty implant and graft; Z89.431 Acquired absence of right foot; Z89.021 Acquired absence of right finger(s)
CPT/HCPCS: 36415; 71045; 71275; 80048; 80053; 81001; 82550; 82607; 83605; 83735; 83880; 84100; 84443; 84484; 85025; 85379; 85610; 85730; 86850; 86900; 86901; 87040; 93306; 97139; J1644; J1940; J3475; J7050; P9047; Q9967

== ENCOUNTER 2023-06-11 11:22 | Inpatient (IN) | payer MEDICARE, BC ==
[2023-06-11 14:07] LABS: Hemoglobin 9.4 g/dL (14.0-18.0); Mean Corpuscular HGB CONC 32.4 g/dL (32.0-36.0); Mean Corpuscular Hemoglobin 34.8 pg (27.0-31.0); Mean Corpuscular Volume 107.4 fl (78.0-98.0); Mean Platelet Volume 10.3 fL (7.4-10.4); Platelet Count 150 10x3/uL (130-400); RBC Distribution Width 16.9 % (11.5-14.5); White Blood Cell (WBC) Count 8.9 10x3/uL (4.8-10.8)
[2023-06-11 14:29] LABS: Anion Gap 11 mmol/L (10-20); BUN (Urea Nitrogen) 22 mg/dL (8.4-25.7); Calc. Creatinine Clearance 0 mL/min (70-130); Carbon Dioxide 18 mmol/L (23-31); Chloride 113 mmol/L (98-107); Estimated GFR 92; Glucose 83 mg/dL (83-110); Potassium 3.4 mmol/L (3.5-5.1); Sodium 139 mmol/L (136-145)
[2023-06-11] MEDS ORDERED: fentaNYL PF 100 MCG/2 ML SYRINGE ONE (14:46)
[2023-06-11] MEDS ORDERED: Vasopressin 20 UNITS/ML VIAL ONE (14:57)
[2023-06-11] MEDS ORDERED: Dexamethasone 20 MG/5 ML VIAL ONE (15:04)
[2023-06-11] MEDS ORDERED: ePHEDrine Sulfate 50 MG/10 ML VIAL ONE (15:04)
[2023-06-11] MEDS ORDERED: Succinylcholine 200 MG/10 ml SYRINGE FS ONE (15:04)
[2023-06-11] MEDS ORDERED: Ondansetron PF 4 MG/2 ML Vial ONE (15:04)
[2023-06-11] MEDS ORDERED: Rocuronium Bromide 10 MG/ML (10ML VIAL) ONE (15:04)
[2023-06-11] MEDS ORDERED: PROPOFOL 200 MG/20 ML VIAL ONE (15:04)
[2023-06-11] MEDS ORDERED: cefOXitin 2 GM VIAL ONE (15:09)
[2023-06-11] MEDS ORDERED: Sodium Chloride 0.9% 100 ML ONE (15:09)
[2023-06-11] MEDS ORDERED: Bupivacaine 0.25% HCL 30 ML VIAL ONE (15:39)
[2023-06-11] MEDS ORDERED: EPINEPHrine 1 MG/ML AMP ONE (15:39)
[2023-06-11] MEDS ORDERED: Morphine 10 MG/ML VIAL SLOW IVP PRN (16:36)
[2023-06-11] MEDS ORDERED: Morphine 4 MG/ML VIAL SLOW IVP PRN (16:36)
[2023-06-11] MEDS ORDERED: Ondansetron PF 4 MG/2 ML Vial IVP PRN (16:36)
[2023-06-11] MEDS ORDERED: hydrALAZINE 20 MG/ML VIAL SLOW IVP PRN (16:36)
[2023-06-11] MEDS ORDERED: Promethazine HCl 25 MG/ML VIAL IM PRN ×2 (16:36→16:39)
[2023-06-11] MEDS ORDERED: Ipratropium/Albuterol 3 ML NEB NEB PRN (16:36)
[2023-06-11] MEDS ORDERED: Morphine 2 MG/ML VIAL SLOW IVP PRN (16:36)
[2023-06-11] MEDS ORDERED: Ondansetron HCl/PF 4 MG/2 ML Vial IVP PRN (16:39)
[2023-06-11] MEDS ORDERED: HYDROmorphone 2 MG/ML VIAL SLOW IVP PRN (16:39)
[2023-06-11] MEDS: Ketorolac Tromethamine 30 MG/ML VIAL IVP SCH ×2 (19:37→23:14)
[2023-06-11] MEDS: Sodium Chloride 0.9% 1,000 ML IV SCH (20:45)
[2023-06-11] MEDS: Famotidine/PF 20 mg/2ml Vial SLOW IVP SCH (20:45)
[2023-06-11] MEDS: Famotidine 20 MG TAB PO SCH (20:45)
[2023-06-11 20:57] VITALS: BMI 25.2
[2023-06-11] MEDS: Gentamicin Ophth Soln 0.3% 5 ml Bottle EA EYE SCH (21:13)
[2023-06-11] MEDS: cefOXitin 2 GM in Sodium Chloride 0.9% 100 ML IVPB SCH (23:14)
[2023-06-12] MEDS: Ketorolac Tromethamine 30 MG/ML VIAL IVP SCH ×2 (05:21→12:14)
[2023-06-12] MEDS: Sodium Chloride 0.9% 1,000 ML IV SCH ×2 (05:22→08:26)
[2023-06-12 05:46] LABS: #Monocytes 0.2 thou/uL (0.11-0.59); #Neutrophils 9.4 thou/uL (1.40-6.50); %Basophils 0.1 % (0.0-1.0); %Lymphocytes 4.7 % (21.0-51.0); %Neutrophils 92.8 % (42.0-75.0); Hematocrit 28.8 % (42.0-52.0); Hemoglobin 9.5 g/dL (14.0-18.0); Mean Corpuscular Hemoglobin 34.8 pg (27.0-31.0); Mean Corpuscular Volume 105.5 fl (78.0-98.0); Mean Platelet Volume 10.5 fL (7.4-10.4); Platelet Count 147 10x3/uL (130-400); RBC Distribution Width 16.2 % (11.5-14.5); Red Blood Cell (RBC) Count 2.73 mill/uL (4.70-6.10); White Blood Cell (WBC) Count 10.1 10x3/uL (4.8-10.8)
[2023-06-12 06:18] LABS: Anion Gap 17 mmol/L (10-20); BUN (Urea Nitrogen) 24 mg/dL (8.4-25.7); Calc. Creatinine Clearance 76 mL/min (70-130); Calcium 7.7 mg/dL (7.8-10.44); Carbon Dioxide 16 mmol/L (23-31); Chloride 112 mmol/L (98-107); Estimated GFR 88; Glucose 138 mg/dL (83-110); Sodium 141 mmol/L (136-145)
[2023-06-12] MEDS ORDERED: Loratadine 10 MG TAB PO PRN (07:25)
[2023-06-12] MEDS ORDERED: Carvedilol 3.125 MG TAB PO SCH (08:00)
[2023-06-12] MEDS: Famotidine 20 MG TAB PO SCH (08:24)
[2023-06-12] MEDS: cefOXitin 2 GM in Sodium Chloride 0.9% 100 ML IVPB SCH (08:24)
[2023-06-12] MEDS: Gentamicin Ophth Soln 0.3% 5 ml Bottle EA EYE SCH (08:25)
[2023-06-12] MEDS: Famotidine/PF 20 mg/2ml Vial SLOW IVP SCH (08:25)
[2023-06-12] MEDS ORDERED: Aspirin Chewable 81 MG TAB PO SCH (09:00)
[2023-06-12] MEDS ORDERED: Megestrol Acetate 400 MG/10 ML UDCUP PO SCH (09:00)
[2023-06-12] MEDS ORDERED: Gabapentin 300 MG CAP PO SCH (09:00)
[2023-06-12] MEDS ORDERED: Megestrol Acetate 800 MG/20 ML UDCUP PO SCH (09:00)
[2023-06-12 15:58] VITALS: BP 108/64; TEMP 97.9
[2023-06-12] MEDS ORDERED: HYDROcodone/Acetaminophen 7.5/325 mg Tablet PO PRN ×2 (16:38)
[2023-06-12] MEDS ORDERED: Atorvastatin Calcium 40 MG TAB PO SCH (21:00)
== END 2023-06-12 15:36 | disposition home or self-care (01) | DRG 331 ==
LOC: SDC 11:22 → SURG A 16:36
PROVIDERS: ADMIT Surgery; ATTEND Surgery
PROC: 0DBN4ZZ Excision of Sigmoid Colon, Percutaneous Endoscopic Approach (ICD-10-PCS; principal; 2023-06-11)
DX: C20 Malignant neoplasm of rectum (principal); E78.00 Pure hypercholesterolemia, unspecified; Z95.1 Presence of aortocoronary bypass graft; Z79.82 Long term (current) use of aspirin; Z98.890 Other specified postprocedural states; Z79.899 Other long term (current) drug therapy
CPT/HCPCS: 36415; 36416; 77014; 80048; 82378; 85025; 85027; 86850; 86900; 86901; 93005; 93010; 97139; J0171; J0694; J1100; J1642; J1650; J1885; J2272; J2405; J2704; J3490; J7050; S0020; S0028

== ENCOUNTER 2023-12-22 15:27 | Outpatient (CLI) | payer BC, MEDICARE ==
[2023-12-22 16:53] LABS: #Eosinphils 0.5 10x3/uL (0.0-0.5); #Monocytes 1.6 10x3/uL (0.0-1.1); %Basophils 0.4 % (0.0-2.0); %Eosinophils 5.6 % (0.0-6.0); %Lymphocytes 19.9 % (18.0-47.0); %Monocytes 17.4 % (0.0-10.0); %Neutrophils 56.5 % (40.0-75.0); Hemoglobin 12.1 g/dL (13.5-17.5); Mean Corpuscular HGB CONC 31.8 g/dL (32.0-36.0); Mean Corpuscular Hemoglobin 30.2 pg (27.0-33.0); Mean Corpuscular Volume 94.8 fl (81.2-95.1); Mean Platelet Volume 10.2 fl (7.4-10.4); Platelet Count 304 10x3/uL (150-450); RBC Distribution Width 13.9 % (11.5-14.5); Red Blood Cell (RBC) Count 4.01 10x6/uL (4.32-5.72); White Blood Cell (WBC) Count 8.9 10x3/uL (3.5-10.5)
[2023-12-22 17:28] LABS: ALT (SGPT) 14 U/L (8-55); AST (SGOT) 17 U/L (5-34); Albumin 3.2 g/dL (3.4-4.8); Alkaline Phosphatase 83 U/L (40-110); Anion Gap 14 mmol/L (10-20); BUN (Urea Nitrogen) 15 mg/dL (8.4-25.7); Bilirubin, Total 0.4 mg/dL (0.2-1.2); Calc. Creatinine Clearance 0 mL/min (70-130); Calcium 8.5 mg/dL (7.8-10.44); Carbon Dioxide 25 mmol/L (23-31); Chloride 107 mmol/L (98-107); Estimated GFR 90; Globulin 2.6 g/dL (2.4-3.5); Glucose 83 mg/dL (83-110); Potassium 4.5 mmol/L (3.5-5.1); Protein, Total 5.8 g/dL (5.8-8.1); Sodium 141 mmol/L (136-145)
[2023-12-22 20:10] LABS: Hemoglobin A1c 5.4 % (4.0-6.0)
== END 2023-12-22 15:28 | disposition home or self-care (01) ==
LOC: LABBT 15:27
PROVIDERS: ATTEND Surgery
DX: Z01.818 Encounter for other preprocedural examination (principal); C20 Malignant neoplasm of rectum; K94.03 Colostomy malfunction
CPT/HCPCS: 80053; 83036; 85025; 93005; 93010

== ENCOUNTER 2023-12-25 | Inpatient (IN) | payer MEDICARE | END 2023-12-25 12:14 | disposition home or self-care (01) | DRG 330 | PROVIDERS: ADMIT Surgery | PROC: 0DBE0ZZ Excision of Large Intestine, Open Approach (ICD-10-PCS; principal; 2023-12-25) | DX: K94.09 Other complications of colostomy (principal); C20 Malignant neoplasm of rectum; E78.00 Pure hypercholesterolemia, unspecified; Z79.82 Long term (current) use of aspirin; Z95.1 Presence of aortocoronary bypass graft; Z98.890 Other specified postprocedural states; Z79.899 Other long term (current) drug therapy ==

== ENCOUNTER 2024-01-01 09:39 | Emergency (ER) | payer MEDICARE | END 2024-01-01 12:13 | disposition home or self-care (01) | LOC: ERS 09:39 | DX: R10.32 Left lower quadrant pain (principal); I10 Essential (primary) hypertension | CPT/HCPCS: 74176 ==

== ENCOUNTER 2024-03-10 09:12 | Inpatient (IN) | payer MEDICARE ==
[2024-03-11] MEDS ORDERED: Acetaminophen 325 MG TAB ONE (08:09)
[2024-03-11] MEDS ORDERED: Gabapentin 300 MG CAP ONE (08:09)
[2024-03-11] MEDS ORDERED: Heparin 5,000 UNITS/ML VIAL ONE (08:09)
[2024-03-11] MEDS ORDERED: CEFAZOLIN 1 GM VIAL ONE ×2 (08:10→08:12)
[2024-03-11] MEDS ORDERED: metroNIDAZOLE 500 MG (100 mL) BAG ONE (08:10)
[2024-03-11] MEDS ORDERED: Sodium Chloride 0.9% 100 ML ONE (08:10)
[2024-03-11] MEDS ORDERED: metroNIDAZOLE 500 MG in Premix 1 BAG IVPB SCH (08:45)
[2024-03-11] MEDS ORDERED: Acetaminophen 325 MG TAB PO SCH (08:45)
[2024-03-11] MEDS ORDERED: Heparin 5,000 UNITS/ML VIAL SC SCH (08:45)
[2024-03-11] MEDS ORDERED: CEFAZOLIN 1 GM in Sodium Chloride 0.9% 100 ML IVPB SCH (08:45)
[2024-03-11] MEDS ORDERED: Gabapentin 300 MG CAP PO SCH (08:45)
[2024-03-11 08:46] LABS: #Basophils 0.03 10x3/uL (0.0-0.2); %Basophils 0.4 % (0.0-1.0); %Lymphocytes 22.2 % (21.0-51.0); %Monocytes 14.4 % (0.0-10.0); %Neutrophils 58.9 % (42.0-75.0); Hematocrit 35.1 % (42.0-52.0); Hemoglobin 11.5 g/dL (14.0-18.0); Mean Corpuscular HGB CONC 32.8 g/dL (32.0-36.0); Mean Corpuscular Hemoglobin 30.6 pg (27.0-31.0); Mean Corpuscular Volume 93.4 fL (78.0-98.0); Mean Platelet Volume 9.9 fL (7.4-10.4); Platelet Count 290 10x3/uL (130-400); RBC Distribution Width 15.1 % (11.5-14.5); Red Blood Cell (RBC) Count 3.76 mill/uL (4.70-6.10)
[2024-03-11] MEDS ORDERED: EPINEPHrine 1 MG/ML VIAL ONE (09:09)
[2024-03-11] MEDS ORDERED: Bupivacaine 0.25% HCL 30 ML VIAL ONE (09:09)
[2024-03-11 09:11] LABS: ALT (SGPT) 11 U/L (8-55); AST (SGOT) 13 U/L (5-34); Albumin 2.9 g/dL (3.4-4.8); Alkaline Phosphatase 71 U/L (40-110); Anion Gap 12 mmol/L (10-20); BUN (Urea Nitrogen) 17 mg/dL (8.4-25.7); Bilirubin, Total 0.9 mg/dL (0.2-1.2); Calc. Creatinine Clearance 77 mL/min (70-130); Calcium 8.5 mg/dL (7.8-10.44); Carbon Dioxide 28 mmol/L (23-31); Chloride 107 mmol/L (98-107); Estimated GFR 88; Globulin 2.8 g/dL (2.4-3.5); Glucose 87 mg/dL (83-110); Potassium 3.3 mmol/L (3.5-5.1); Protein, Total 5.7 g/dL (5.8-8.1); Sodium 144 mmol/L (136-145)
[2024-03-11] MEDS ORDERED: Rocuronium Bromide 10 MG/ML (10ML VIAL) ONE (09:35)
[2024-03-11] MEDS ORDERED: Midazolam HCl 2 mg/2 ml Vial ONE (09:35)
[2024-03-11] MEDS ORDERED: Fentanyl 250 MCG/5 ML VIAL ONE (09:35)
[2024-03-11] MEDS ORDERED: Etomidate 40 MG (20 mL) VIAL ONE (09:42)
[2024-03-11] MEDS ORDERED: Glycopyrrolate 0.2 MG/ML 5 ML SYRINGE ONE (10:22)
[2024-03-11] MEDS ORDERED: Ondansetron PF 4 MG/2 ML Vial ONE (11:02)
[2024-03-11] MEDS ORDERED: Dexamethasone 4 mg/ml Vial ONE (11:02)
[2024-03-11] MEDS ORDERED: SUGAMMADEX SODIUM 200 MG/2 ML VIAL ONE (11:47)
[2024-03-11] MEDS ORDERED: hydrALAZINE 20 MG/ML VIAL SLOW IVP PRN (12:21)
[2024-03-11] MEDS ORDERED: Ondansetron PF 4 MG/2 ML Vial IVP PRN (12:21)
[2024-03-11] MEDS ORDERED: Ipratropium/Albuterol 3 ML NEB NEB PRN (12:21)
[2024-03-11] MEDS ORDERED: Promethazine HCl 25 MG/ML VIAL IM PRN (12:21)
[2024-03-11] MEDS ORDERED: fentaNYL 50 mcg/mL 1 mL Vial ONE ×2 (13:02→14:28)
[2024-03-11] MEDS ORDERED: Morphine 4 MG/ML VIAL ONE (15:21)
[2024-03-11] MEDS: POTASSIUM IV SCH (17:27)
[2024-03-11] MEDS: 1/2 NS IV SCH (17:27)
[2024-03-11 18:56] VITALS: BMI 26.1
[2024-03-11] MEDS: Gabapentin 300 MG CAP PO SCH (20:12)
[2024-03-11] MEDS: Atorvastatin Calcium 40 MG TAB PO SCH (20:12)
[2024-03-11] MEDS: Famotidine 20 MG TAB PO SCH (20:12)
[2024-03-11] MEDS: Famotidine/PF 20 mg/2ml Vial SLOW IVP SCH (20:13)
[2024-03-12 08:06] LABS: #Basophils Less than 0.03 10x3/uL (0.0-0.2); #Eosinphils Less than 0.03 10x3/uL (0.0-0.7); %Basophils 0.1 % (0.0-1.0); %Lymphocytes 6.9 % (21.0-51.0); %Monocytes 13.2 % (0.0-10.0); %Neutrophils 79.5 % (42.0-75.0); Hematocrit 32.7 % (42.0-52.0); Hemoglobin 10.6 g/dL (14.0-18.0); Mean Corpuscular HGB CONC 32.4 g/dL (32.0-36.0); Mean Corpuscular Hemoglobin 30.5 pg (27.0-31.0); Mean Platelet Volume 10.1 fL (7.4-10.4); Platelet Count 279 10x3/uL (130-400); RBC Distribution Width 14.9 % (11.5-14.5); Red Blood Cell (RBC) Count 3.48 mill/uL (4.70-6.10)
[2024-03-12 08:18] LABS: Anion Gap 14 mmol/L (10-20); BUN (Urea Nitrogen) 17 mg/dL (8.4-25.7); Calc. Creatinine Clearance 84 mL/min (70-130); Carbon Dioxide 22 mmol/L (23-31); Chloride 109 mmol/L (98-107); Estimated GFR 89; Glucose 125 mg/dL (83-110); Potassium 3.9 mmol/L (3.5-5.1); Sodium 141 mmol/L (136-145)
[2024-03-12] MEDS: Loratadine 10 MG TAB PO SCH (08:56)
[2024-03-12] MEDS: Cyanocobalamin (Vitamin B-12) 1,000 MCG TAB PO SCH (08:56)
[2024-03-12 10:29] VITALS: BMI 26.1
[2024-03-12] MEDS: Heparin 5,000 UNITS/ML VIAL SC SCH (16:20)
[2024-03-13 00:27] VITALS: TEMP 98.7
[2024-03-13 15:42] VITALS: BP 121/56
== END 2024-03-13 16:00 | disposition home or self-care (01) | DRG 330 ==
LOC: EDSTATUS 09:12 → SURG A 03-11 07:41 → 2NO 03-11 18:46
PROVIDERS: ADMIT Surgery; ATTEND Internal Medicine
PROC: 0DBN4ZZ Excision of Sigmoid Colon, Percutaneous Endoscopic Approach (ICD-10-PCS; principal; 2024-03-11)
PROC: 0DTP4ZZ Resection of Rectum, Percutaneous Endoscopic Approach (ICD-10-PCS; 2024-03-11)
PROC: 3E033XZ Introduction of Vasopressor into Peripheral Vein, Percutaneous Approach (ICD-10-PCS; 2024-03-11)
PROC: 0DJD8ZZ Inspection of Lower Intestinal Tract, Via Natural or Artificial Opening Endoscopic (ICD-10-PCS; 2024-03-11)
PROC: 8E0W4CZ Robotic Assisted Procedure of Trunk Region, Percutaneous Endoscopic Approach (ICD-10-PCS; 2024-03-11)
DX: C20 Malignant neoplasm of rectum (principal); C18.9 Malignant neoplasm of colon, unspecified; K94.00 Colostomy complication, unspecified; R15.9 Full incontinence of feces; I10 Essential (primary) hypertension; E78.5 Hyperlipidemia, unspecified; I25.10 Atherosclerotic heart disease of native coronary artery without angina pectoris; Z79.82 Long term (current) use of aspirin; Z79.899 Other long term (current) drug therapy; Z98.890 Other specified postprocedural states; Z95.1 Presence of aortocoronary bypass graft; Z92.21 Personal history of antineoplastic chemotherapy
CPT/HCPCS: 36415; 80048; 80053; 82378; 85025; 86850; 86900; 86901; 88309; A4649; C1889; J0171; J0665; J0690; J1100; J1642; J1644; J2250; J2270; J2405; J3010; J3480; J3490

== ENCOUNTER 2024-03-18 20:46 | Day surgery (SDC) | payer MEDICARE ==
[~2024-03-18 20:46] MED LIST changes: -Iopamidol-370 76% 500 ML MDV (1 ML CHARGE) ONE; +PROPOFOL 20 ML ONE; +fentaNYL PF 100 MCG/2 ML SYRINGE ONE
[2024-03-18] MEDS ORDERED: Rocuronium Bromide 10 MG/ML (10ML VIAL) ONE (21:25)
[2024-03-18] MEDS ORDERED: PROPOFOL 200 MG/20 ML VIAL ONE (21:25)
[2024-03-18] MEDS ORDERED: Ondansetron PF 4 MG/2 ML Vial ONE (21:25)
[2024-03-18] MEDS ORDERED: SUCCINYLCHOLINE/SOD CL,ISO/PF 200 MG/10 ML SYRINGE FS ONE (21:25)
[2024-03-18] MEDS ORDERED: Lidocaine 1% PF 5 ML VIAL ONE (21:25)
[2024-03-18] MEDS ORDERED: SUGAMMADEX SODIUM 200 MG/2 ML VIAL ONE (21:39)
== END 2024-03-18 22:35 | disposition home or self-care (01) ==
LOC: SDC 20:46
PROVIDERS: ATTEND Internal Medicine Gastroenterology
PROC: 0DC58ZZ Extirpation of Matter from Esophagus, Via Natural or Artificial Opening Endoscopic (ICD-10-PCS; principal; 2024-03-18)
DX: T18.120A Food in esophagus causing compression of trachea, initial encounter (principal); K22.2 Esophageal obstruction; I25.10 Atherosclerotic heart disease of native coronary artery without angina pectoris; I10 Essential (primary) hypertension; E78.5 Hyperlipidemia, unspecified; C20 Malignant neoplasm of rectum; Z79.82 Long term (current) use of aspirin; Z79.899 Other long term (current) drug therapy; Z98.890 Other specified postprocedural states; Z89.439 Acquired absence of unspecified foot; Z95.5 Presence of coronary angioplasty implant and graft
CPT/HCPCS: J2405; J2704